=== PATIENT | male | born 1975 | race Caucasian/White ===

== ENCOUNTER → 2019-02-24 08:18 | Outpatient (BNVA) | payer BC, SELFPAY | PROVIDERS: Family Provider Family Medicine; PCP Family Medicine; Visit Provider Family Medicine | DX: E11.65 Type 2 diabetes mellitus with hyperglycemia (principal) | CPT/HCPCS: 80053; 80061; 83036 ==

== ENCOUNTER → 2019-05-31 15:49 | Outpatient (BNVA) | payer BC, SELFPAY | PROVIDERS: Family Provider Family Medicine; PCP Family Medicine; Visit Provider Family Medicine | DX: E11.65 Type 2 diabetes mellitus with hyperglycemia (principal) | CPT/HCPCS: 80053; 83036 ==

== ENCOUNTER 2019-06-28 17:29 | Emergency (ER) | payer BC, SELFPAY ==
[2019-06-28 17:39] VITALS: BP 128/83; PULSE 97; RESP 18; TEMP 36.8; O2SAT 96; BMI 36.9
--- NOTE | 2019-06-28 17:47 | W.ED.EAR ---
HPI - Ear Problem General: Chief complaint: Ear Stated complaint: ear pain Time Seen by Provider: 06/28/19 17:47 Source: patient Mode of arrival: ambulatory Limitations: no limitations History of Present Illness: HPI Narrative: 43-year-old male comes in with left ear discomfort. Patient states that for the last 2 to 3 weeks he has had problems with his ear and has been treated twice in urgent care. Patient was first given Augmentin and then some Ciprodex eardrops. Patient appears well. Patient appears in no pain. Associated symptoms: Reports ear or mastoid pain Review of Systems General: Reports: 10 or more systems reviewed and unremarkable except in HPI and below ENMT: Reports: ear or mastoid pain PFS ED PFSH: Medical History (Updated 06/28/19 @ 18:20 by FERNANDA Hurley) Uncontrolled type 2 diabetes mellitus, without long-term current use of insulin Surgical History History of ear, nose, and throat (ENT) surgery NOSE S/P knee surgery Status post shoulder surgery Family History Other CAD (coronary artery disease) Cancer Diabetes Social History Smoking and tobacco status: current every day smoker cigarettes Packs smoked per day: 0.25 Alcohol intake: former Year of sobriety/quit date alcohol: 2014 Physical Exam Const: COMMON NORMALS: no acute distress and patient oriented x3 GENERAL APPEARANCE: cooperative HENMT: COMMON NORMALS: normocephalic and Normal external nose present HEAD & SCALP: normal to inspection and normocephalic NOSE: Normal external nose present TYMPANIC MEMBRANE: other (Left ear canal is mildly erythematous, patient has a whitish substance laying next to the tympanic membrane partially occluding it. After irrigation with water and peroxide was unable to remove the whitish substance. Suspect that the substances either retained cotton, exudate from previous infection, or fungal infection.) MOUTH: Normal oral and palatal mucosa present THROAT: posterior oropharynx normal Eye: GENERAL EYE: appearance normal, both eyes and all related structures Neck/C-Spine: COMMON NORMALS: full ROM Lymph: LYMPHATIC: no lymphadenopathy noted Chest: COMMONS NORMALS: normal inspection of the chest Resp: COMMON NORMALS: normal respiratory effort EFFORT & INSPECTION: Yes able to speak in complete sentences Cardio: COMMON NORMALS: regular rate and regular rhythm RATE: regular rate RHYTHM: regular rhythm GI: COMMON NORMALS: non-tender : COMMON NORMALS: Yes no CVA tenderness BLADDER/KIDNEY EXAM: Yes no CVA tenderness Back/Pelvis: COMMON NORMALS: no CVA tenderness and thoracic and lumbar spine normal to inspection Extremity: COMMON NORMALS: normal to inspection Neuro: COMMON NORMALS: patient oriented x3 and moves all extremities Psych: COMMON NORMALS: mental status grossly normal and cooperative Skin: COMMON NORMALS: no rashes or lesions noted GENERAL SKIN EXAM: no rashes or lesions noted Course Vital Signs: Vital signs: Vital Signs Temperature 98.2 F 06/28/19 17:39 Pulse Rate 97 06/28/19 17:39 Respiratory Rate 18 06/28/19 17:39 Blood Pressure 128/83 06/28/19 17:39 Pulse Oximetry 96 06/28/19 17:39 MDM - Ear MDM Narrative: Medical decision making narrative: Patient comes in for persistent discomfort to the left ear. On exam we noted some substance to the left ear canal laying against the tympanic membrane. Ear was irrigated with water and peroxide without ability to remove the substance. Suspect that the substance could be a retained cottonball, exudate residual from previous otitis externa, or a fungal infection. Recommend the patient follow-up with case management for referral to green chain offbearer. I recommended the patient continue with the Ciprodex eardrops until he met with the specialist. Patient reported understanding and agreed to plan. Discharge Plan Discharge Patient Disposition: Home, Self-Care Clinical Impression: Foreign body in left ear Qualifiers: Encounter type: subsequent encounter Qualified Code(s): T16.2XXD - Foreign body in left ear, subsequent encounter Condition: Stable Prescriptions: No Action metformin 500 mg tablet extended release 24 hr 500 mg PO BID Qty: 60 RF: 1 Ciprodex 0.3-0.1 % drops,suspension 4 drp EAR-BOTH BID 7 Days Qty: 7.5 RF: 0 (DME) blood-glucose meter [Accu-Chek Guide Glucose Meter] Misc See Rx Instructions .ROUTE .MEDSUPPLY Qty: 1 RF: 0 (DME) Accu-Chek Guide test strips Strip See Rx Instructions .ROUTE .MEDSUPPLY Qty: 50 RF: 0 ibuprofen 200 mg Capsule 200 mg PO Q6H PRN (Reason: Pain) RF: 0 Discharge Orders: Discharge Order (Routine); Ordered 06/28/19 Ordered By: Hernan Rizvi Referrals: Marichuy Willis DO [Primary Care Provider] - Discharge Diet: Usual diet Discharge Activity: Increase activity as tolerated Patient Instructions: Ear Foreign Body (ED) Activity Restrictions/Additional Instructions: Continue with antibiotic eardrops as directed until follow-up with green chain offbearer. Case management will contact you tomorrow for follow-up appointment. Return to the emergency department for worsening pain or high fever. Coding Level of Care Code ED Examining Officer for Donya Fwmonique Exam Comprehensive
[2019-06-28 19:16] VITALS: BP 135/84; PULSE 84; RESP 14; O2SAT 95
--- NOTE | 2019-06-29 14:15 | DCPLANNER ---
Addendum entered by Christine Riddle 07/15/19 15:27: Patient attended appointment with Dr. Watkins on 06.30.19. Original Note: sponsorship manager had message to schedule a follow up appointment for patient with Dr. Watkins, ENT. sponsorship manager called the office of Dr. Watkins, a follow up appointment was scheduled for Friday, June 30, 2019 at 3:[address] Watkins. sponsorship manager called patient and informed patient of the scheduled appointment. sponsorship manager faxed patients records the clinic.
== END 2019-06-28 19:18 | disposition home or self-care (01) ==
PROVIDERS: Emergency Provider Nurse Practitioner Family; PCP Family Medicine
DX: T16.2XXA Foreign body in left ear, initial encounter (principal); X58.XXXA Exposure to other specified factors, initial encounter; Z79.84 Long term (current) use of oral hypoglycemic drugs; E11.9 Type 2 diabetes mellitus without complications; F17.210 Nicotine dependence, cigarettes, uncomplicated
CPT/HCPCS: 12345; 99281; 99282

== ENCOUNTER → 2019-10-16 13:01 | Outpatient (BNVA) | payer BC, SELFPAY | PROVIDERS: PCP Family Medicine; Visit Provider Nurse Practitioner | DX: J02.0 Streptococcal pharyngitis (principal) | CPT/HCPCS: 87880 ==

== ENCOUNTER → 2019-10-30 16:35 | Outpatient (BNVA) | payer BC, SELFPAY | PROVIDERS: PCP Family Medicine; Visit Provider Nurse Practitioner | DX: J02.9 Acute pharyngitis, unspecified (principal) | CPT/HCPCS: 87880 ==

== ENCOUNTER → 2019-11-08 17:30 | Outpatient (BNVA) | payer BC, SELFPAY | PROVIDERS: PCP Family Medicine; Visit Provider Nurse Practitioner | DX: J02.9 Acute pharyngitis, unspecified (principal) | CPT/HCPCS: 87071; 87880 ==

== ENCOUNTER → 2019-11-09 07:09 | Outpatient (BNVA) | payer BC, SELFPAY | PROVIDERS: PCP Family Medicine; Visit Provider Nurse Practitioner Family | DX: Z11.59 Encounter for screening for other viral diseases (principal) | CPT/HCPCS: 87635 ==

== ENCOUNTER → 2019-11-15 16:18 | Outpatient (BNVA) | payer BC, SELFPAY | PROVIDERS: PCP Family Medicine; Visit Provider Family Medicine | DX: Z11.59 Encounter for screening for other viral diseases (principal); Z20.828 Contact with and (suspected) exposure to other viral communicable diseases; R05 Cough | CPT/HCPCS: 87635 ==

== ENCOUNTER → 2019-12-01 08:32 | Outpatient (BNVA) | payer BC, SELFPAY | PROVIDERS: PCP Family Medicine; Visit Provider Family Medicine | DX: E11.9 Type 2 diabetes mellitus without complications (principal); I10 Essential (primary) hypertension; K13.70 Unspecified lesions of oral mucosa; N50.9 Disorder of male genital organs, unspecified; F17.219 Nicotine dependence, cigarettes, with unspecified nicotine-induced disorders | CPT/HCPCS: 80053; 80061; 83036; 85025 ==

== ENCOUNTER → 2020-03-10 14:35 | Outpatient (BNVA) | payer BC, SELFPAY | PROVIDERS: PCP Family Medicine; Visit Provider Family Medicine | DX: E11.9 Type 2 diabetes mellitus without complications (principal); J30.9 Allergic rhinitis, unspecified | CPT/HCPCS: 80053; 83036 ==

== ENCOUNTER → 2020-10-04 15:29 | Outpatient (BNVA) | payer BC, SELFPAY | PROVIDERS: PCP Family Medicine; Visit Provider Family Medicine | DX: E11.9 Type 2 diabetes mellitus without complications (principal); R06.2 Wheezing; I10 Essential (primary) hypertension; M62.08 Separation of muscle (nontraumatic), other site; K42.9 Umbilical hernia without obstruction or gangrene; Z76.89 Persons encountering health services in other specified circumstances | CPT/HCPCS: 80053; 80061; 83036; 83721 ==

== ENCOUNTER 2022-07-01 16:48 | Emergency (ER) | payer BC, SELFPAY ==
[2022-07-01 16:52] VITALS: BP 133/88; PULSE 86; RESP 18; TEMP 36.5; O2SAT 98; BMI 34.7
[2022-07-01 19:00] LABS: Basophils % 0.3 %; Eosinophils # 0.1 10^3/uL (0.0-0.8); Eosinophils % 1.3 %; Hematocrit 45.5 % (42.0-52.0); Hemoglobin 15.7 g/dL (11.7-16.6); Lymphocytes # 3.6 10^3/uL (0.8-4.8); Lymphocytes % 42.1 %; Mean Corpuscular HGB Conc 34.5 g/dL (30.0-36.0); Mean Corpuscular Hemoglobin 29.6 pg (28.0-34.0); Mean Corpuscular Volume 85.8 fl (80-94); Mean Platelet Volume 10.6 fL (7.4-10.4); Monocytes # 0.6 10^3/uL (0.2-0.9); Monocytes % 7.2 %; Neutrophils # 4.18 10^3/uL (1.8-7.7); Neutrophils % 48.8 %; Nucleated Red Blood Cells % 0 %; Platelet Count 231 10^3/cmm (130-400); White Blood Count 8.6 10^3/uL (4.0-10.0)
[2022-07-01 19:22] LABS: Alkaline Phosphatase 81 U/L (40-130); Carbon Dioxide 24 mmol/L (22-29); Potassium 3.8 mmol/L (3.5-5.1); Sodium 142 mmol/L (136-145)
[2022-07-01 19:27] LABS: Albumin Level 4.4 g/dL (3.5-5.2); Anion Gap 16.8 (5-19); Blood Urea Nitrogen 12 mg/dL (6-20); Calcium 9.1 mg/dL (8.5-10.5); Chloride 105 mmol/L (98-107); Globulin 2.6 g/dL (1.3-4.6); Glucose 122 mg/dL (65-115); Lipase 20 U/L (13-60); Osmolality Calculated 295 mOsm/kg (285-295); Total Bilirubin 0.4 mg/dL (0.15-1.2)
[2022-07-01 19:29] LABS: Alanine Aminotransferase 71 U/L (0-41); Aspartate Amino Transferase 29 U/L (0-40)
[2022-07-01 20:12] VITALS: BP 138/86; PULSE 92; RESP 18; O2SAT 96
--- NOTE | 2022-07-01 20:25 | W.ED.ABDPA2 ---
HPI - Abdominal Pain General: Chief Complaint: Abdominal Pain Stated Complaint: abd pain Time Seen by Provider: 07/01/22 20:13 Source: patient Mode of arrival: ambulatory Limitations: no limitations History of Present Illness: 46-year-old male states that he has had nausea vomiting diarrhea some abdominal cramping since . He states he had eaten some old food on Friday that was sent in his truck and that it all started after then. He states he had some improvement and started having diarrhea again today he rates his pain a 1 out of 10 states mainly cramping. States his vomiting has improved. Just has the diarrhea now denies any fevers. He has taken Pepto-Bismol with no relief Associated Symptoms: Reports diarrhea, nausea and vomiting; Denies chills, dysuria and fever(s) Review of Systems Const: Denies: fever(s), chills, body aches or change in appetite ENMT: Denies: throat pain or dental pain Card: Denies: chest pain Resp: Denies: dyspnea GI: Reports: abdominal pain, nausea, vomiting and diarrhea : Denies: dysuria Musc: Denies: neck pain or back pain Skin/Breast: Denies: rash Neuro: Denies: headache(s) PFSH ED PFSH: Surgical History History of ear, nose, and throat (ENT) surgery NOSE S/P knee surgery Status post shoulder surgery Family History Other CAD (coronary artery disease) Cancer Diabetes Social History Smoking and tobacco status: current every day smoker cigarettes Packs smoked per day: 2 Alcohol intake: former Year of sobriety/quit date alcohol: 2014 Substance/Drug Use: former Date of last use: IV DRUGS - CLEAN SINCE 03/18/14 Physical Exam Const: COMMON NORMALS: no acute distress and patient oriented x3 HENMT: COMMON NORMALS: normocephalic and atraumatic HEAD & SCALP: normocephalic and atraumatic Eye: COMMON NORMALS: conjunctivae normal CONJUNCTIVA: Yes conjunctivae normal Neck/C-Spine: COMMON NORMALS: full ROM and supple Chest: COMMONS NORMALS: normal inspection of the chest and normal palpation of entire chest wall Resp: COMMON NORMALS: normal respiratory effort, No retractions, No use of accessory muscles and clear to auscultation bilaterally AUSCULTATION: clear to auscultation bilaterally Cardio: COMMON NORMALS: regular rate, regular rhythm and No murmurs present (Cardio) RATE: regular rate RHYTHM: regular rhythm GI: COMMON NORMALS: Normal to inspection, nondistended, normoactive bowel sounds present, Soft to palpation, non-tender and no masses PALPATION: Yes Soft to palpation Extremity: COMMON NORMALS: normal to inspection and full ROM Neuro: COMMON NORMALS: patient oriented x3, moves all extremities and no focal motor deficits Psych: COMMON NORMALS: mental status grossly normal, Normal thought process present and cooperative THOUGHT PROCESS: Normal thought process present Skin: COMMON NORMALS: no rashes or lesions noted and no wounds GENERAL SKIN EXAM: no rashes or lesions noted Course Vital Signs: Vital signs: Vital Signs Temperature 97.7 F 07/01/22 16:52 Pulse Rate 92 07/01/22 20:12 Respiratory Rate 18 07/01/22 20:12 Blood Pressure 138/86 07/01/22 20:12 Pulse Oximetry 96 07/01/22 20:12 Oxygen Delivery Me thod Room Air 07/01/22 20:12 MDM - Abdominal Pain Medical Decision Making Patient presents with vomiting along with diarrhea he has had any vomiting here he feels improved after fluids and nausea medicine. Blood work here is all normal ultrasound of his gallbladder showed no acute findings in the gallbladder. He likely had food poisoning we will prescribe him Zofran and Imodium for home he is to follow-up his PCP and return if worsening he understands agrees to plan. Medical Records I reviewed the patient's medical records. Lab Data I reviewed the patient's lab results. 07/01/22 18:54 07/01/22 18:54 Labs/Radiology: Laboratory Results WBC 8.6 10^3/uL (4.0-10.0) 07/01/22 18:54 RBC 5.30 10^6/uL (4.1-5.3) 07/01/22 18:54 Hgb 15.7 g/dL (11.7-16.6) 07/01/22 18:54 Hct 45.5 % (42.0-52.0) 07/01/22 18:54 MCV 85.8 fl (80-94) 07/01/22 18:54 MCH 29.6 pg (28.0-34.0) 07/01/22 18:54 MCHC 34.5 g/dL (30.0-36.0) 07/01/22 18:54 RDW 12.0 % (12.1-15.1) L 07/01/22 18:54 Plt Count 231 10^3/cmm (130-400) 07/01/22 18:54 MPV 10.6 fL (7.4-10.4) H 07/01/22 18:54 Neut % (Auto) 48.8 % 07/01/22 18:54 Lymph % (Auto) 42.1 % 07/01/22 18:54 [place] % (Auto) 7.2 % 07/01/22 18:54 Eos % (Auto) 1.3 % 07/01/22 18:54 Baso % (Auto) 0.3 % 07/01/22 18:54 Neut # (Auto) 4.18 10^3/uL (1.8-7.7) 07/01/22 18:54 Lymph # (Auto) 3.6 10^3/uL (0.8-4.8) 07/01/22 18:54 [place] # (Auto) 0.6 10^3/uL (0.2-0.9) 07/01/22 18:54 Eos # (Auto) 0.1 10^3/uL (0.0-0.8) 07/01/22 18:54 Baso # (Auto) 0.0 10^3/uL (0.0-0.1) 07/01/22 18:54 Nucleated RBC % (auto) 0 % 07/01/22 18:54 Nucleated RBCs # 0.0 /100WBC 07/01/22 18:54 Sodium 142 mmol/L (136-145) 07/01/22 18:54 Potassium 3.8 mmol/L (3.5-5.1) 07/01/22 18:54 Chloride 105 mmol/L (98-107) 07/01/22 18:54 Carbon Dioxide 24 mmol/L (22-29) 07/01/22 18:54 Anion Gap 16.8 (5-19) 07/01/22 18:54 BUN 12 mg/dL (6-20) 07/01/22 18:54 Creatinine 0.5 mg/dL (0.7-1.2) L 07/01/22 18:54 GFR Calculation 179.0 mL/min (90-130) H 07/01/22 18:54 Glucose 122 mg/dL (65-115) H 07/01/22 18:54 Calculated Osmolality 295 mOsm/kg (285-295) 07/01/22 18:54 Calcium 9.1 mg/dL (8.5-10.5) 07/01/22 18:54 Total Bilirubin 0.4 mg/dL (0.15-1.2) 07/01/22 18:54 AST 29 U/L (0-40) 07/01/22 18:54 ALT 71 U/L (0-41) H 07/01/22 18:54 Alkaline Phosphatase 81 U/L (40-130) 07/01/22 18:54 Total Protein 7.0 g/dL (6.6-8.7) 07/01/22 18:54 Albumin 4.4 g/dL (3.5-5.2) 07/01/22 18:54 Globulin 2.6 g/dL (1.3-4.6) 07/01/22 18:54 Lipase 20 U/L (13-60) 07/01/22 18:54 Urine Color Yellow (Yellow) 07/01/22 20:36 Urine Appearance Clear (CLEAR) 07/01/22 20:36 Urine pH 5 (5-7) 07/01/22 20:36 Ur Specific [place] 1.030 (1.005-1.030) 07/01/22 20:36 Urine Protein Neg (Negative) 07/01/22 20:36 Urine Glucose (UA) Norm (Normal) 07/01/22 20:36 Urine Ketones 2+ (Negative) H 07/01/22 20:36 Urine Blood Trace (Negative) H 07/01/22 20:36 Urine Nitrate Negative (Negative) 07/01/22 20:36 Urine Bilirubin Neg (Negative) 07/01/22 20:36 Urine Urobilinogen Neg mg/dL (Negative) 07/01/22 20:36 Ur Leukocyte Esterase Negative (Negative) 07/01/22 20:36 Urine RBC 0-4 /hpf (0-2) H 07/01/22 20:36 Urine WBC None /hpf (0-5) 07/01/22 20:36 Ur Squamous Epith Cells 0-4 /hpf (0-5) H 07/01/22 20:36 Amorphous Sediment Not Reportable 07/01/22 20:36 Urine Bacteria Trace /hpf (NONE) 07/01/22 20:36 Urine Mucus 2+ /hpf 07/01/22 20:36 Discharge Plan Discharge Patient Disposition: Home Clinical Impression: Vomiting, Diarrhea Condition: Stable Prescriptions: New ondansetron 4 mg tablet,disintegrating 4 mg PO Q6H PRN (Reason: nausea and vomiting) Qty: 14 0RF Imodium A-D 2 mg capsule 2 mg PO Q6H PRN (Reason: loose stool) Qty: 20 0RF No Action Mucinex 1,200 mg tablet extended release 12hr 1,200 mg PO Q12H Qty: 20 0RF lisinopril 2.5 mg tablet 2.5 mg PO DAILY Qty: 90 1RF albuterol sulfate [ProAir HFA] 90 mcg/actuation HFA aerosol inhaler 2 puff INHALATION QID PRN (Reason: shortness of breath or wheezing) Qty: 8.5 5RF metformin 500 mg tablet 500 mg PO DAILY mupirocin 2 % ointment 1 applic topical BID linezolid 600 mg tablet 600 mg PO BID Qty: 20 0RF (DME) Accu-Chek Guide test strips Strip See Rx Instructions .ROUTE .MEDSUPPLY Qty: 100 12RF Rx Instructions: once daily (DME) blood-glucose meter [Accu-Chek Guide Glucose Meter] [facility] [place]ROUTE .MEDSUPPLY Qty: 1 0RF Rx Instructions: once daily glipizide 10 mg tablet extended release 24hr 10 mg PO DAILY 30 Days Qty: 30 3RF ibuprofen 200 mg Capsule 200 mg PO Q6H PRN (Reason: Pain) Discharge Orders: Discharge ED (Routine); Ordered 07/01/22 Ordered By: Siva Ziegler Referrals: Janine Cartagena MD [Primary Care Provider] - 1-3 days Discharge Diet: Advance as tolerated Discharge Activity: Resume usual activity Patient Instructions: Acute Nausea and Vomiting (ED), Acute Diarrhea (ED), Opioid Safety, Pain Management Coding Level of Care Code ED Ammonia Print Operator for Donya Elder
--- NOTE | 2022-07-01 20:26 | USR_ITS ---
PROCEDURE INFORMATION: Exam: US Abdomen, Limited; Right Upper Quadrant Exam date and time: 07/01/2022 8:52 PM Age: 46 years old Clinical indication: Nausea and vomiting and other: Diarrhea x 4 days; Patient HX: N+v with diarrhea x 4 days. ; Additional info: Abd pain TECHNIQUE: Imaging protocol: Real time ultrasound of the abdomen with image documentation. Limited exam focused on the right upper quadrant. COMPARISON: US abdomen limited [id number] 11/14/2017 8:10 AM FINDINGS: Liver: The liver shows no solid mass. No visualized ascites. Liver is echogenic measuring 23.3 cm. Gallbladder: The gallbladder shows no stones and has no wall thickening. Biliary ducts: No evidence of intrahepatic biliary dilation. No CBD dilation. Pancreas: The pancreas is not well seen due to overlying bowel gas. It shows no focal abnormality, however. Right kidney: Unremarkable. No solid renal mass or hydronephrosis. US/US gall bladder [id number] IMPRESSION: 1. No acute findings. 2. Large and fatty liver.
[2022-07-01] MEDS: sodium chloride 0.9% 1,000 ML 999 ML IV (20:47)
[2022-07-01] MEDS: ondansetron 2 mg/ML SDV 2 mL 4 MG IVP (20:47)
[2022-07-01] MEDS: loperamide 2 mg Capsule 4 MG PO (20:48)
[2022-07-01 21:03] LABS: Add Urine Culture? No; Add Urine Microscopic? YES; Bacteria Urine TRACE /hpf; Bilirubin Urine Neg (Negative); Blood Urine Trace (Negative); Glucose Urine UA Norm (Normal); Ketones Urine 2+ (Negative); Leukocyte Esterase Urine Negative (Negative); Mucus Urine 2+ /hpf; Nitrate Urine Negative (Negative); Protein Urine Neg (Negative); RBC Urine 0-4 /hpf (0-2); Squamous Epithelial Cell Urine 0-4 /hpf (0-5); Urine Appearance Clear (CLEAR); Urine Color Yellow (Yellow); Urobilinogen Urine Neg (Negative); pH Urine 5 (5-7)
[2022-07-01 22:49] VITALS: BP 138/68; PULSE 72; RESP 16; O2SAT 97
== END 2022-07-01 22:50 | disposition home or self-care (01) ==
PROVIDERS: Emergency Provider Emergency Medicine; PCP Family Medicine
DX: R11.11 Vomiting without nausea (principal); R19.7 Diarrhea, unspecified; Z79.84 Long term (current) use of oral hypoglycemic drugs; F17.210 Nicotine dependence, cigarettes, uncomplicated
CPT/HCPCS: 36415; 76705; 80053; 81001; 83690; 85025; 96361; 96374; 96375; 99285; J2405; J7030